=== PATIENT | female | born 1995 | race Caucasian/White ===

== ENCOUNTER 2018-12-11 06:38 | Emergency (ER) | payer SELFPAY ==
[2018-12-11] MEDS ORDERED: Ibuprofen 600 MG TAB ONE (07:30)
== END 2018-12-11 07:30 | disposition home or self-care (01) ==
LOC: MADERS 06:38
DX: H60.8X1 Other otitis externa, right ear (principal); Z79.899 Other long term (current) drug therapy
CPT/HCPCS: 99406

== ENCOUNTER 2018-12-12 07:24 | Emergency (ER) | payer SELFPAY ==
[2018-12-12] MEDS ORDERED: HYDROcodone/Acetaminophen 5/325 mg Tablet ONE (08:13)
[2018-12-12] MEDS ORDERED: Ondansetron ODT 4 MG TAB ONE (08:14)
[2018-12-12] MEDS ORDERED: Ciprofloxacin 500 MG TAB ONE (08:14)
== END 2018-12-12 08:51 | disposition home or self-care (01) ==
LOC: MADERS 07:24
DX: H60.91 Unspecified otitis externa, right ear (principal)
CPT/HCPCS: 99282; Q0162